=== PATIENT | female | born 1960 | race Hispanic/Latino ===

== ENCOUNTER 2019-11-01 07:13 | Outpatient (CLI) | payer BC ==
[2019-11-01 07:33] LABS: Basophils # (Auto) 0.1 K/mm3 (0.0-0.1); Basophils % (Auto) 0.7 % (0.0-1.8); Eosinophils # (Auto) 0.2 K/mm3 (0.0-0.4); Hematocrit 39.2 % (30.3-42.9); Hemoglobin 13.7 gm/dl (10.1-14.3); Lymphocytes # (Auto) 1.7 K/mm3 (1.2-5.4); Lymphocytes % (Auto) 18.8 % (13.4-35.0); Mean Corpuscular HGB Conc 35 % (30-34); Mean Corpuscular Volume 92 fl (79-97); Monocytes # (Auto) 0.7 K/mm3 (0.0-0.8); Monocytes % (Auto) 7.9 % (0.0-7.3); Platelet Count 411 K/mm3 (140-440); Red Blood Count 4.26 M/mm3 (3.65-5.03); Red Cell Distribution Width 13.4 % (13.2-15.2)
[2019-11-01 08:04] LABS: Free T4 (Free Thyroxine) 1.21 ng/dL (0.76-1.46)
[2019-11-01 08:47] LABS: Alanine Aminotransferase 37 units/L (7-56); Albumin 4.5 g/dL (3.9-5); BUN/Creatinine Ratio 26; Blood Urea Nitrogen 13 mg/dL (7-17); Calcium 10.3 mg/dL (8.4-10.2); Chol/HDL Ratio 2.76 %; HDL Cholesterol 55 mg/dL (40-59); Hemolysis Index 3; LDL Cholesterol,Direct 86 mg/dL (50-130)
[2019-11-04 14:12] LABS: Vitamin D, 25-OH, D2 4 ng/mL
== END 2019-11-01 07:14 | disposition home or self-care (01) ==
LOC: LAB 07:13
PROVIDERS: ATTEND Internal Medicine
DX: I10 Essential (primary) hypertension (principal); E03.9 Hypothyroidism, unspecified; E78.2 Mixed hyperlipidemia
CPT/HCPCS: 36415; 80053; 80061; 82306; 84439; 84443; 85025

== ENCOUNTER 2020-05-04 08:27 | Emergency (ER) | payer OTHER, BC ==
[2020-05-04 08:34] VITALS: BP 114/75
[2020-05-04] MEDS ORDERED: KETOROLAC 30 MG/1 ML INJ IM ONE (08:53)
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
== END 2020-05-04 10:17 | disposition home or self-care (01) ==
LOC: ED 08:27
DX: S13.4XXA Sprain of ligaments of cervical spine, initial encounter (principal); S63.502A Unspecified sprain of left wrist, initial encounter; S09.90XA Unspecified injury of head, initial encounter; E03.9 Hypothyroidism, unspecified; Z79.899 Other long term (current) drug therapy; Z88.2 Allergy status to sulfonamides; Z88.8 Allergy status to other drugs, medicaments and biological substances; V49.49XA Driver injured in collision with other motor vehicles in traffic accident, initial encounter; Y93.89 Activity, other specified; Y92.488 Other paved roadways as the place of occurrence of the external cause; Y99.8 Other external cause status
CPT/HCPCS: 70450; 72125; 73110; 96372; 99284; J1885; 99283

== ENCOUNTER 2020-11-01 10:47 | Emergency (ER) | payer BC ==
--- NOTE | 2020-11-01 11:27 | Emergency Department Report ---
ED General Adult HPI - General Chief complaint: High BP Stated complaint: HBP Time Seen by Provider: 11/01/20 10:51 Source: patient Mode of arrival: Ambulatory Limitations: No Limitations - History of Present Illness Initial comments: 59-year female the past medical history hypertension presents to the hospital planing of feeling lightheaded and elevated BP this morning. Patient woke up "not feeling right" which she describes as mostly lightheadedness. She took her 8 AM dose of losartan/HCTZ 100/25 mg at around 8 AM. Her blood pressure was 160/118 at the time patient states she was anxious due to elevation in her blood pressure. She waited 1 hour we checked her blood pressure and was 188/110 so she decided come to the hospital for evaluation. Patient does not typically check her blood pressure at home on a regular basis but states as far as she knows her typical blood pressure is 120/80 while on meds. She has been compliant with all medication doses. 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 She denies headache, blurry vision, chest pain, shortness of breath, nausea, vomiting, focal weakness, focal numbness. PMD: Dr. Palafox - Related Data Previous Rx's Medication Instructions Recorded Last Taken Type Cyclobenzaprine [Flexeril] 10 mg PO TID PRN #20 tablet 05/04/20 Unknown Rx HYDROcodone/APAP 5-325 [[place] 1 each PO Q6HR PRN #15 tablet 05/04/20 Unknown Rx 5/325] Allergies Allergy/AdvReac Type Severity Reaction Status Date / Time Iodine and Iodide Containing Allergy Hives Verified 05/04/20 08:32 Produc Sulfa (Sulfonamide Allergy Hives Verified 05/04/20 08:32 Antibiotics) ED Review of Systems ROS: Stated complaint: HBP Other details as noted in HPI Comment: All other systems reviewed and negative ED Past Medical Hx - Past Medical History Previous Medical History?: Yes Hx Hypertension: Yes Additional medical history: Hypothyroid, high cholesterol - Surgical History Additional Surgical History: wrist surgery x 2 - Social History Smoking Status: Never Smoker Substance Use Type: None - Medications Home Medications: Home Medications Medication Instructions Recorded Confirmed Last Taken Type Cyclobenzaprine [Flexeril] 10 mg PO TID PRN #20 tablet 05/04/20 Unknown Rx HYDROcodone/APAP 5-325 [[place] 1 each PO Q6HR PRN #15 tablet 05/04/20 Unknown Rx 5/325] ED Physical Exam - General Limitations: No Limitations - Other Other exam information: General: No acute distress Head: Atraumatic Eyes: normal appearance, no nystagmus ENT: Moist mucous membranes Neck: Normal appearance, no midline tenderness Chest: Clear to auscultation bilaterally CV: Regular rate and rhythm Abdomen: Soft, normal bowel sounds, nontender, nondistended, no rebound or guarding Back: Normal inspection Extremity: Normal inspection, full range of motion Neuro: Alert O x 3, no facial asymmetry, speech clear, no gross motor sensory deficit, vwshsj-szgy-miubtj function Psych: Appropriate behavior Skin: No rash ED Course Vital Signs 11/01/20 11/01/20 11/01/20 10:50 11:30 12:45 Temperature 98.2 F 98.2 F Pulse Rate 87 88 88 Respiratory 20 18 16 Rate Blood Pressure 161/96 Blood Pressure 169/119 143/98 [Right] O2 Sat by Pulse 97 100 100 Oximetry ED Medical Decision Making - Lab Data Result diagrams: 11/01/20 11:32 11/01/20 11:32 Lab Results 11/01/20 11/01/20 Range/Units 11:32 11:32 WBC 8.1 (4.5-11.0) K/mm3 RBC 4.08 (3.65-5.03) M/mm3 Hgb 13.1 (10.1-14.3) gm/dl Hct 38.4 (30.3-42.9) % MCV 94 (79-97) fl MCH 32 (28-32) pg MCHC 34 (30-34) % RDW 13.9 (13.2-15.2) % Plt Count 369 (140-440) K/mm3 Lymph % (Auto) 14.0 (13.4-35.0) % Humphreys % (Auto) 6.2 (0.0-7.3) % Eos % (Auto) 0.3 (0.0-4.3) % Baso % (Auto) 0.8 (0.0-1.8) % Lymph # (Auto) 1.1 L (1.2-5.4) K/mm3 Humphreys # (Auto) 0.5 (0.0-0.8) K/mm3 Eos # (Auto) 0.0 (0.0-0.4) K/mm3 Baso # (Auto) 0.1 (0.0-0.1) K/mm3 Seg Neutrophils % 78.7 H (40.0-70.0) % Seg Neutrophils # 6.4 (1.8-7.7) K/mm3 Sodium 143 (137-145) mmol/L Potassium 3.7 (3.6-5.0) mmol/L Chloride 108.4 H (98-107) mmol/L Carbon Dioxide 22 (22-30) mmol/L Anion Gap 16 mmol/L BUN 13 (7-17) mg/dL Creatinine 0.5 L (0.6-1.2) mg/dL Estimated GFR > 60 ml/min BUN/Creatinine Ratio 26 % Glucose 100 (65-100) mg/dL Calcium 9.4 (8.4-10.2) mg/dL - EKG Data -: EKG Interpreted by Me EKG shows normal: sinus rhythm, ST-T waves (no stemi) Rate: normal (80) - Medical Decision Making 59-year-old female presents to the hospital complaining to have lightheadedness and elevated BP this morning. She took her medication at 8 AM as scheduled and has been compliant with her daily doses. Losartan appears to have onset of 6 hours and a duration of 24 hours. Hydrochlorothiazide has an onset of 2 hours with peak onset at 4 hours and duration of 24 hours. Patient reserved in the ED for 4-1/2 hours status post her home meds with improvement in blood pressure. Labs and EKG unremarkable. She is asymptomatic at time of discharge. Patient started to record and monitor her blood pressure at home and follow-up with PMD to determine if medication adjustment is warranted. Critical Care Time: No Critical care attestation.: If time is entered above; I have spent that time in minutes in the direct care of this critically ill patient, excluding procedure time. ED Disposition Clinical Impression: Uncontrolled hypertension Disposition: DC- TO HOME OR SELFCARE Is pt being admited?: No Does the pt Need Aspirin: No Condition: Stable Instructions: Hypertension, Adult, Hypertension (ED) Additional Instructions: Take the medication as prescribed. Follow-up with your doctor or doctor/clinic provided. Monitor and record your blood pressure as discussed so that your doctor may determine medication adjustments. Return if symptoms worsen as indicated by your discharge instructions. Referrals: PRIMARY CARE, [Primary Care Provider] - 2-3 Days Forms: Work/School Release Form(ED) Time of Disposition: 12:47
[2020-11-01 11:53] LABS: Basophils # (Auto) 0.1 K/mm3 (0.0-0.1); Basophils % (Auto) 0.8 % (0.0-1.8); Eosinophils % (Auto) 0.3 % (0.0-4.3); Hematocrit 38.4 % (30.3-42.9); Hemoglobin 13.1 gm/dl (10.1-14.3); Lymphocytes # (Auto) 1.1 K/mm3 (1.2-5.4); Mean Corpuscular HGB Conc 34 % (30-34); Mean Corpuscular Volume 94 fl (79-97); Monocytes # (Auto) 0.5 K/mm3 (0.0-0.8); Monocytes % (Auto) 6.2 % (0.0-7.3); Platelet Count 369 K/mm3 (140-440); Red Blood Count 4.08 M/mm3 (3.65-5.03); Red Cell Distribution Width 13.9 % (13.2-15.2)
[2020-11-01 12:04] LABS: Blood Urea Nitrogen 13 mg/dL (7-17); Calcium 9.4 mg/dL (8.4-10.2); Hemolysis Index 4
[2020-11-01 12:05] LABS: BUN/Creatinine Ratio 26
[2020-11-01 12:46] VITALS: BP 143/98
== END 2020-11-01 12:56 | disposition home or self-care (01) ==
LOC: ED 10:47
DX: I10 Essential (primary) hypertension (principal); E03.9 Hypothyroidism, unspecified; E78.00 Pure hypercholesterolemia, unspecified; Z98.890 Other specified postprocedural states; Z79.899 Other long term (current) drug therapy; Z88.2 Allergy status to sulfonamides; Z91.041 Radiographic dye allergy status
CPT/HCPCS: 36415; 80048; 85025; 93005